=== PATIENT | female | born 2000 | race Two or more races ===

== ENCOUNTER 2020-04-23 06:34 | Inpatient (IN) ==
[2020-04-23] MEDS ORDERED: PITOCIN ONE (06:45)
[2020-04-23] MEDS ORDERED: D5 1/2 NS 1000 ML 1,000 ML IV ONE (06:45)
[2020-04-23] MEDS ORDERED: BETADINE SOLN ONE (06:45)
[2020-04-23] MEDS ORDERED: D5 1/2 NS 1L W PITOCIN 20 UNITS/L 20 UNITS/1,000 ML BAG IV ONE (06:46)
[2020-04-23] MEDS ORDERED: D5LR 1L W PITOCIN 10 UNITS/L 10 UNITS/1,000 ML BAG IV ONE (06:46)
[2020-04-23] MEDS ORDERED: D5LR 1L W PITOCIN 10 UNITS/L 10 UNITS/1,000 ML BAG IV PRN (07:00)
[2020-04-23] MEDS ORDERED: PHENERGAN INJ 25 MG IM PRN ×2 (07:00→12:17)
[2020-04-23] MEDS ORDERED: D5 1/2 NS 1000 ML 1,000 ML IV SCH (07:00)
[2020-04-23] MEDS ORDERED: MORPHINE SULFATE INJ 2 MG INJ IVP PRN (07:00)
[2020-04-23] MEDS ORDERED: REGLAN INJ 10 MG VIAL IVP PRN (07:00)
[2020-04-23] MEDS ORDERED: STADOL INJ IVP PRN (07:03)
[2020-04-23 07:32] LABS: BILIRUBIN,URINE NEGATIVE (NEGATIVE); BLOOD/HEMOGLOBIN,URINE NEGATIVE (NEGATIVE); GLUCOSE, URINE NEGATIVE (NEGATIVE); KETONES,URINE NEGATIVE (NEGATIVE); LEUKOCYTE ESTERASE ,URINE 1+ (NEGATIVE); NITRITES,URINE NEGATIVE (NEGATIVE); PROTEIN,URINE 1+ (NEGATIVE); UROBILINOGEN,URINE 1+ (NORMAL)
[2020-04-23 07:35] LABS: APPEARANCE,URINE HAZY (CLEAR); COLOR,URINE YELLOW (YELLOW)
[2020-04-23 07:41] LABS: BASOPHILS % (AUTO) 0.7 % (0.2-1.0); EOSINOPHILS # (AUTO) 0.1 x10^3/uL (0.0-0.2); EOSINOPHILS % (AUTO) 0.8 % (0.9-2.9); HEMATOCRIT 27.3 % (36.0-47.0); HEMOGLOBIN 8.8 g/dL (12.0-16.0); LYMPHOCYTES # (AUTO) 2.3 X10^3/uL (1.3-2.9); LYMPHOCYTES % (AUTO) 35.1 % (21.0-51.0); MEAN CORPUSCULAR HEMOGLOBIN 26.5 pg (27.0-34.0); MEAN CORPUSCULAR HGB CONC 32.4 g/dL (33.0-35.0); MEAN PLATELET VOLUME 10.6 fL (7.4-11.0); MONOCYTES # (AUTO) 0.5 x10^3/uL (0.3-0.8); MONOCYTES % (AUTO) 7.1 % (0.0-13.0); NEUTROPHILS # (AUTO) 3.6 x10^3/uL (2.2-4.8); NEUTROPHILS % (AUTO) 56.3 % (42.0-75.0); PLATELET COUNT 138 X10^3/uL (150.0-450.0); RED BLOOD COUNT 3.33 X10^6/uL (3.5-5.4); RED CELL DISTRIBUTION WIDTH 27.8 % (11.6-16.5); WHITE BLOOD COUNT 6.4 X10^3/uL (3.6-10.0)
[2020-04-23 07:48] LABS: BLOOD UREA NITROGEN 11 mg/dL (7-18); CALCIUM 8.6 mg/dL (8.5-10.1); CARBON DIOXIDE 20.1 mmol/L (21-32); CHLORIDE 103 mmol/L (98-107); CREATININE 0.63 mg/dL (0.55-1.02); SODIUM 136 mmol/L (136-145); eGFR NON BLACK RACES > 60 (>60)
[2020-04-23 08:15] LABS: ANISOCYTOSIS 3+; PLATELET MORPHOLOGY COMMENT NORMAL (NORMAL)
[2020-04-23] MEDS ORDERED: STADOL INJ ONE (10:07)
[2020-04-23] MEDS: PITOCIN IVP ONE ×2 (11:50→12:48)
[2020-04-23] MEDS ORDERED: MILK OF MAGNESIA PO PRN (12:46)
[2020-04-23] MEDS ORDERED: ADACEL or BOOSTRIX TDaP VACCINE IM ONE (12:46)
[2020-04-23] MEDS ORDERED: AMBIEN PO PRN (12:46)
[2020-04-23] MEDS ORDERED: DERMOPLAST PAIN RELIEF SPRAY TOP PRN (12:46)
[2020-04-23] MEDS: D5 1/2 NS 1000 ML 1,000 ML with PITOCIN 20 UNITS IV SCH ×4 (16:12→21:00)
[2020-04-23] MEDS: MOTRIN TAB 800 MG PO PRN (18:39)
[2020-04-24] MEDS: D5 1/2 NS 1000 ML 1,000 ML with PITOCIN 20 UNITS IV SCH ×6 (05:07→20:55)
[2020-04-24 06:33] LABS: HEMATOCRIT 22.2 % (36.0-47.0); HEMOGLOBIN 7.3 g/dL (12.0-16.0)
[2020-04-24] MEDS: PRENATAL PLUS PO SCH (08:29)
[2020-04-24] MEDS ORDERED: NS 100 ML IV 100 ML with VENOFER 400 MG IV NR ×2 (09:49)
[2020-04-24] MEDS: MOTRIN TAB 800 MG PO PRN (14:00)
[2020-04-25] MEDS: D5 1/2 NS 1000 ML 1,000 ML with PITOCIN 20 UNITS IV SCH ×2 (04:16)
[2020-04-25] MEDS ORDERED: NS 100 ML IV 100 ML with VENOFER 400 MG IV NR ×2 (08:15)
[2020-04-25] MEDS: PRENATAL PLUS PO SCH (08:24)
[2020-04-25 11:03] VITALS: BP 107/54
== END 2020-04-25 13:15 | disposition home or self-care (01) | DRG 807 ==
LOC: LD 06:34 → MED/SURG 13:11
PROVIDERS: ADMIT Obstetrics & Gynecology Obstetrics; ATTEND Obstetrics & Gynecology Obstetrics
DX: Z37.0 Single live birth; O80 Encounter for full-term uncomplicated delivery; Z3A.40 40 weeks gestation of pregnancy
CPT/HCPCS: 36415; 59409; 80048; 81003; 85014; 85018; 85025; 86592; 86850; 86900; 86901; A4216; A4222; J0595; J1756; J2590; J7050; S0197; S5010